=== PATIENT | female | born 1980 | race Caucasian/White ===

== ENCOUNTER 2016-08-13 12:27 | Emergency (ER) ==
[2016-08-13 12:36] VITALS: BP 125/85; TEMP 98.4; BMI 18.8
--- NOTE | 2016-08-13 12:50 | ED.PDOC ---
General ED Provider: Dr. ARIK ARMANDO Chief Complaint: Seizure Stated Complaint: patient woke up from sleep, hurting all over, feels like she had seizure in sleep, that how she felt before when she had one. did not loose bowel or bladder control. Time Seen by Physician: 12:48 Mode of Arrival: Walk-In Information Source: Patient Primary Care Provider: GRACIA JERRY Nursing and Triage Documentation Reviewed and Agree: Yes Neurological Complaint Exam - Seizure Complaint/Exam Symptoms Are: Resolved Timing: Intermittent Episodes Lasting: Seconds Failed to Regain Consciousness: No Severity: Self-limited Location: All extremities Character: Tonic-clonic Aggravating: Reports: None Alleviating: Reports: None Associated Signs and Symptoms: Reports: Anxiety. Denies: Emotional distress, Impaired speech, Bladder incontinence, Bowel incontinence, Trauma, Illness, Vomiting, Lethargy, Apnea Related History: Reports: Similar episode (08-02-) SAH Risk Factors: Reports: None Meningitis Risk Factors: Reports: None SDH Risk Factors: Reports: None Related Surgical History: Reports: None Active Seizure: Tonic-clonic Carotid Bruit Present: No Cephalohematoma Present: No Tongue Bitten: No Neck Pain Present: No Nystagmus Present: No Gag Reflex Present: Yes Speech: Present: Normal Findings Aphasia: Present: None Meningeal Signs Positive: No Focal Weakness: Present: None Focal Sensory Loss: Reports: None Gait: Normal [id number]: Normal Findings Romberg Test Positive: No Babinski Sign: Negative Right, Negative Left Heel to Toe Normal: Yes Differential Diagnoses: Seizure Review of Systems - Review Of Systems Constitutional: Reports: Weakness Eyes: Reports: No symptoms Ears, Nose, Mouth, Throat: Reports: No symptoms Respiratory: Reports: No symptoms Cardiac: Reports: No symptoms GI: Reports: No symptoms : Reports: No symptoms Musculoskeletal: Reports: No symptoms Skin: Reports: No symptoms Neurological: Reports: Headache, Tonic-Clonic seizures Endocrine: Reports: No symptoms Hematologic/Lymphatic: Reports: No symptoms All Other Systems: Reviewed and Negative Past Medical History - Past Medical History Previously Healthy: Yes Endocrine: Reports: None Cardiovascular: Reports: None Respiratory: Reports: None Hematological: Reports: None Gastrointestinal: Reports: None Genitourinary: Reports: None Neuro/Psych: Reports: Seizure Musculoskeletal: Reports: None Cancer: Reports: None Last Menstrual Period: partial hysterectomy - Surgical History General Surgical History: Reports: Hysterectomy - Family History Family History: Reports: None - Social History Smoking Status: Former smoker Hx Substance Use: No Alcohol Screening: None - Immunizations Tetanus Shot up to Date: Yes Physical Exam - Physical Exam Appearance: Well-appearing, No pain distress, Well-nourished Eyes: AMOS, EOMI, Conjunctiva clear ENT: Ears normal (no tongue bite), Nose normal, Oropharynx normal Respiratory: Airway patent, Breath sounds clear, Breath sounds equal, Respirations nonlabored Cardiovascular: RRR, Pulses normal, No rub, No murmur GI/: Soft, Nontender, No masses, Bowel sounds normal, No Organomegaly Musculoskeletal: Normal strength, ROM intact, No edema, No calf tenderness Skin: Warm, Dry, Normal color Neurological: Sensation intact, Motor intact, Reflexes intact, Cranial nerves intact, Alert, Oriented Psychiatric: Affect appropriate, Mood appropriate Interpretation - Radiology Interpretation Radiology Interpretation By: Radiologist Radiology Results: Negative Exam Interpreted: CT Scan Critical Care Note - Critical Care Note Total Time (mins): 0 Course - Course Hematology/Chemistry: 08/13/16 12:55 08/13/16 12:55 Orders, Labs, Meds: Lab Review 08/13/16 12:55 WBC 8.59 RBC 4.72 Hgb 13.5 Hct 39.5 MCV 83.7 MCH 28.6 MCHC 34.2 RDW Coeff of Deepa 12.4 Plt Count 323 Immature Gran % (Auto) 0.5 Neut % (Auto) 58.7 Lymph % (Auto) 31.1 Clinch % (Auto) 7.5 Eos % (Auto) 1.3 Baso % (Auto) 0.9 Immature Gran # (Auto) 0.0 Neut # 5.1 Lymph # 2.7 Clinch # 0.6 Eos # 0.1 Baso # 0.1 Sodium 141 Potassium 3.7 Chloride 109 H Carbon Dioxide 22 Anion Gap 13.7 BUN 9 Creatinine 0.75 Estimated GFR (MDRD) 87.00 BUN/Creatinine Ratio 12.00 Glucose 92 Calcium 9.0 Total Bilirubin 1.44 H AST 16 ALT 12 Alkaline Phosphatase 58 Total Protein 7.0 Albumin 4.0 Globulin 3.0 Albumin/Globulin Ratio 1.33 Orders Category Date Time Status CBC W/ AUTO DIFF Stat LAB 08/13/16 12:55 Completed COMPREHENSIVE METABOLIC PANEL Stat LAB 08/13/16 12:[address] HEAD W/O CONTRAST Stat RADS 03/26/17 12:47 Completed Vital Signs: Temp Pulse Resp BP Pulse Ox 08/13/16 12:28 98.4 F 95 H 16 125/85 99 Departure - Departure Time of Disposition: 13:30 Disposition: HOME SELF-CARE Discharge Problem: Seizure Instructions: Recurrent Seizures in Adults (ED) Condition: Stable Pt referred to PMD for follow-up: Yes Additional Instructions: keep f/u with PMD Allergies/Adverse Reactions: Allergies No Known Allergies Allergy (Verified 08/13/16 12:37) Home Medications: Ambulatory Orders Lorazepam [Ativan] 1 mg PO TID 08/13/16 Disposition Discussed With: Patient
[2016-08-13 13:05] LABS: BASOPHILS # (AUTO) 0.1 K/uL (0-0.2); BASOPHILS % (AUTO) 0.9 % (0.0-3.0); EOSINOPHILS # (AUTO) 0.1 K/ul (0.0-0.7); EOSINOPHILS % (AUTO) 1.3 % (0.0-7.0); HEMATOCRIT 39.5 % (37.0-47.0); HEMOGLOBIN 13.5 g/dl (12.0-16.0); IMMATURE GRANULOCYTE % (AUTO) 0.5 % (0.0-5.0); LYMPHOCYTES # (AUTO) 2.7 K/uL (0.60-3.4); LYMPHOCYTES % (AUTO) 31.1 (10.0-50.0); MEAN CORPUSCULAR HEMOGLOBIN 28.6 pg (27.0-31.0); MEAN CORPUSCULAR HGB CONC 34.2 (31.8-35.4); MEAN CORPUSCULAR VOLUME 83.7 fl (81.0-99.0); MONOCYTES # (AUTO) 0.6 K/uL (0.4-2.0); MONOCYTES % (AUTO) 7.5 (0-10); NEUTROPHILS # (AUTO) 5.1 K/ul (2.0-6.9); NEUTROPHILS % (AUTO) 58.7; PLATELET COUNT 323 10^3/uL (140-440); RED BLOOD COUNT 4.72 10^6/ul (4.20-5.40); WHITE BLOOD COUNT 8.59 K/ul (4.6-10.2)
--- NOTE | 2016-08-13 13:15 | CT ---
Examination: Noncontrast CT examination of the brain. Comparison: 05/14/2007. Reason for study: Seizure. FINDINGS: No acute intracranial hemorrhage, mass effect, ventricular dilatation, or territorial inf arction. The quadrigeminal and ambient cisterns are patent. There is no extraaxial fluid collectio n. The calvarium is intact. The imaged paranasal sinuses and mastoid air cells are unopacified. Th e patient is edentulous. Impression: No acute intracranial findings.
[2016-08-13 13:28] LABS: ALBUMIN/GLOBULIN RATIO 1.33; ANION GAP 13.7; BILIRUBIN,TOTAL 1.44 mg/dL (0.00-1.20); CREATININE 0.75 mg/dL (0.60-1.30); POTASSIUM 3.7 mmol/L (3.5-5.10)
== END 2016-08-13 13:34 | disposition home or self-care (01) ==
LOC: ED 12:27
DX: R56.9 Unspecified convulsions (principal)
CPT/HCPCS: 36415; 80053; 85025; 99282

== ENCOUNTER 2023-08-24 14:52 | Observation (INO) ==
[~2023-08-24 14:52] MED LIST: HYDROCHLOROTHIAZIDE PO SCH
--- NOTE | 2023-08-24 15:52 | ED.PDOC ---
General ED Provider: Dr. BRADFORD BRASHER Chief Complaint: Palpitations Stated Complaint: Patient is a 42-year-old female who comes to the emergency department with a 2-day history of palpitations. She states has been having blood pressure issues and her PCP increased her blood pressure medications. She reports having chest pain is substernal area for the past 2 days and then palpitations for the last 1 and for hours. She states nothing makes it better or worse. She describes the pain as pressure and does not radiate. She states her palpitations have been constant. She also states that she has a history of mitral valve prolapse. Time Seen by Provider: 08/24/23 15:50 Mode of Arrival: Walk-In Information Source: Patient Primary Care Provider: GRACIA JERRY Nursing and Triage Documentation Reviewed and Agree: Yes What is Opioid Naive?: *Opioid Naive implies the patient is not already taking opioids or not chronically receiving opioids on a daily basis. *PRN dosing is not "usually" associated with tolerance. *Patients are at higher risk of over-sedation and aspiration. What is Opioid Tolerant?: *Opioid Tolerance implies less than the expected response to an opioid. *Acquired tolerance is defined by the patient taking 60mg of oral morphine daily (or equianalgesic dose of another opioid) for 1 week or more. *Often associated with chronic pain. *May take more than usual dose to achieve desired pain control. Cardiovascular Complaint Exam Palpitations Complaint/Exam Onset/Duration: 2 days Symptoms Are: Still present Timing: Intermittent Current Severity: Mild Character: Reports Skipped beats Aggravating: Reports None Alleviating: Reports None Associated Signs and Symptoms: Reports Lightheadedness, Dizziness and Chest pain (intermitent ); Denies Syncope Related Surgical History: Reports None Cardiac Risk Factors: Reports None Pulmonary Embolism Risk Factors: Reports None Differential Diagnoses: Mitral Valve Prolapse, Hypokalemia, Paroxysmal SVT and VT Quality Indicator For Non-Traumatic Chest Pain/Syncope: EKG Performed Review of Systems Review Of Systems Constitutional: Reports No symptoms Cardiac: Reports Palpitations GI: Reports No symptoms : Reports No symptoms Musculoskeletal: Reports No symptoms Skin: Reports No symptoms Neurological: Reports Anxiety All Other Systems: Reviewed and Negative [facility] Medical History (Updated 08/24/23 @ 20:26 by BRADFORD BRASHER MD) Mitral valve prolapse I34.1 - Nonrheumatic mitral (valve) prolapse (ICD-10) delivery delivered two childbirths O82 - Encounter for delivery without indication (ICD-10) Family History (Updated 08/24/23 @ 19:36 by TEODORA NUNEZ RN) FATHER Diabetes Social History (Updated 08/24/23 @ 19:51 by TEODORA NUNEZ RN) Smoking and tobacco status: Never smoker Alcohol intake: never Claudia/uatsdin: NONE Surgical History (Updated 08/24/23 @ 20:00 by TEODORA NUNEZ RN) History of hysterectomy Z90.710 - Acquired absence of both cervix and uterus (ICD-10) History of cholecystectomy Z90.49 - Acquired absence of other specified parts of digestive tract (ICD- 10) Female Reproductive History Menstrual Hx Hysterectomy: Yes Hx Tubal Ligation: No Physical Exam Physical Exam Appearance: Reports Well-appearing Ill-appearing: None Pain Distress: None Eyes: Reports AMOS, EOMI and Conjunctiva clear Respiratory: Reports Airway patent, Breath sounds clear and Breath sounds equal Cardiovascular: Reports RRR, Pulses normal and No rub Musculoskeletal: Reports Normal strength and ROM intact Skin: Reports Warm Psychiatric: Reports Anxious Interpretation EKG Interpretation Time of EKG #1: 15:39 Rate: Normal Rhythm: Sinus Ectopy: None Mission: NL ST Segment: Normal Interpretation: No ischemic changes normal EKG. Critical Care Note Critical Care Note Total Critical Care Time (mins): 40 Comments: Monitoring patient and managing severe hypokalemia with IV fluids and p.o. medications and placing orders for IV potassium. Course Course 08/24/23 16:08 08/24/23 16:08 Orders, Labs, Meds: Lab Review 08/24/23 08/24/23 16:02 16:08 WBC 10.49 H RBC 3.95 L Hgb 11.6 L Hct 34.0 L MCV 86.1 MCH 29.4 MCHC 34.1 RDW Coeff of Deepa 12.5 Plt Count 312 Immature Gran % (Auto) 0.4 Neut % (Auto) 62.3 Lymph % (Auto) 29.7 Benzie % (Auto) 6.0 Eos % (Auto) 1.0 Baso % (Auto) 0.6 Neut # (Auto) 6.5 Lymph # (Auto) 3.1 Benzie # (Auto) 0.6 Eos # (Auto) 0.1 Baso # (Auto) 0.1 Immature Gran # (Auto) 0.0 Sodium 136.8 Potassium 2.88 L Chloride 103.5 Carbon Dioxide 27.9 Anion Gap 8.28 BUN 16.4 Creatinine 0.91 Estimated GFR (MDRD) 67.00 BUN/Creatinine Ratio 18.02 Glucose 98.3 Lactic Acid 0.89 Calcium 9.21 Magnesium 2.01 Total Bilirubin 0.90 AST 30.8 ALT 27.1 Alkaline Phosphatase 56.5 Troponin I < 0.012 NT-Pro-B Natriuret Pep < 20 Total Protein 6.96 Albumin 4.17 Globulin 2.79 Albumin/Globulin Ratio 1.49 TSH 1.460 D-Dimer 202.72 Influ A Molecular Assay Negative by naat Influ B Molecular Assay Negative by naat SARS CoV-2 RNA Rapid CASSIE Negative Orders Category Date Time Status ADMIT OBSERVATION [PLACE PATIENT OBSERVATION] .TO ADMISSION 08/24/23 17:54 Active MEDSURG (MONITORED BED) EKG-(ED ONLY) Stat CARDIO 08/24/23 15:36 Completed Monitor Telemetry [TELEMETRY MONITORING] TELE CARE 08/24/23 16:41 Completed TELEMETRY MONITORING TELE CARE 08/24/23 17:55 Active ED APPLY O2 .ONCE EMERGENCY 08/24/23 15:52 Active ED DOOR CUTTER APPLIED .ONCE EMERGENCY 08/24/23 15:52 Active CBC W/ AUTO DIFF Stat LAB 08/24/23 16:08 Completed COMPREHENSIVE METABOLIC PANEL Stat LAB 08/24/23 16:08 Completed D-DIMER Stat LAB 08/24/23 16:08 Completed FLU A/B MOLECULAR Stat LAB 08/24/23 16:02 Completed LACTIC ACID Stat LAB 08/24/23 16:08 Completed MAGNESIUM Stat LAB 08/24/23 16:08 Completed NT-PROBNP(ED) Stat LAB 08/24/23 16:08 Completed SARS COV-2 RNA RAPID CASSIE Stat LAB 08/24/23 16:02 Completed TROPONIN I Stat LAB 08/24/23 16:08 Completed TSH [THYROID STIMULATING HORMONE] Stat LAB 08/24/23 16:08 Completed Potassium Chloride [K-Dur] Meds 08/24/23 17:30 Discontinued 40 meq PO ONCE STA Potassium Chloride [Potassium Chloride 20 Meq/100 ml Meds 08/24/23 17:30 Discontinued Premix] 20 meq in 100 ml IV ONCE Sodium Chloride 0.9% [Sodium Chloride] 1,000 ml Meds 08/24/23 17:30 Discontinued IV BOLUS CHEST, 2 VIEWS PA & LAT Stat RADS 08/24/23 15:52 Completed Medications Generic Name Dose Route Start Last Admin Trade Name Mattq PRN Reason Stop Dose Admin Alprazolam 0.5 mg 08/25/23 09:00 Alprazolam 0.5 Mg Tablet PO DAILY ALINA Atorvastatin Calcium 20 mg 08/24/23 20:10 Atorvastatin Calcium 20 Mg Tablet PO BEDTIME ALINA Lisinopril/HCTZ 1 tab 08/25/23 09:00 Lisinopril/Hydrochlorothiazide 20/12.5 Tablet PO DAILY ALINA Lisinopril 40 mg 08/24/23 20:10 Lisinopril 40 Mg Tablet PO DAILY ALINA Meloxicam 15 mg 08/24/23 20:05 Meloxicam 7.5 Mg Tablet PO DAILY ALINA Zolpidem Tartrate 15 mg 08/24/23 20:30 Zolpidem Tartrate 5 Mg Tablet PO DAILY ALINA Discontinued Medications Generic Name Dose Route Start Last Admin Trade Name Mattq PRN Reason Stop Dose Admin Potassium Chloride 20 meq in 100 mls @ 50 mls/hr 08/24/23 17:30 08/24/23 18:35 Potassium Chloride 20 Meq/100 Ml Premix IV 08/24/23 19:29 50 mls/hr ONCE ONE Administration Sodium Chloride 1,000 mls @ 1,000 mls/hr 08/24/23 17:30 08/24/23 19:46 Sodium Chloride IV 08/24/23 18:29 Infused BOLUS STA Infusion Potassium Chloride 40 meq 08/24/23 17:30 08/24/23 17:55 Potassium Chloride 20 Meq Tab PO 08/24/23 17:31 40 meq ONCE STA Administration Vital Signs: Temp Pulse Resp BP Pulse Ox 08/24/23 15:14 98.2 F 82 16 149/91 H 99 NIKITA Risk Score NIKITA Risk Score: Risk Score Odds of by 30D 0 0.1 (0.1-0.2) 1 0.3 (0.2-0.3) 2 0.4 (0.3-0.5) 3 0.7 (0.6-0.9) 4 1.2 (1.0-1.5) 5 2.2 (1.9-2.6) 6 3.0 (2.5-3.6) 7 4.8 (3.8-6.1) Physician Progress Note: [] Discharge Plan Discharge Patient Disposition: PLACED OBSERVATION Discharge Problem: Palpitations, Hypokalemia Did you review [place] [employer] for ALL controlled substances?: Not Applicable ED Provider: BRADFORD BRASHER Condition: Fair
--- NOTE | 2023-08-24 16:26 | DI ---
EXAM: CHEST TWO-VIEW HISTORY: Chest pain COMPARISON: None FINDINGS: Cardiac silhouette and mediastinum are normal. There is no pulmonary infiltrate.There is no pleural effusion. Skeletal structures unremarkable IMPRESSION: Negative chest. No active cardiopulmonary disease
[2023-08-24 16:29] LABS: BASOPHILS # (AUTO) 0.1 K/uL (0-0.2); BASOPHILS % (AUTO) 0.6 % (0.0-3.0); EOSINOPHILS # (AUTO) 0.1 K/ul (0.0-0.7); HEMOGLOBIN 11.6 g/dl (12.0-16.0); IMMATURE GRANULOCYTE % (AUTO) 0.4 % (0.0-5.0); LYMPHOCYTES # (AUTO) 3.1 K/uL (0.60-3.4); LYMPHOCYTES % (AUTO) 29.7 (10.0-50.0); MEAN CORPUSCULAR HEMOGLOBIN 29.4 pg (27.0-31.0); MEAN CORPUSCULAR HGB CONC 34.1 (31.8-35.4); MEAN CORPUSCULAR VOLUME 86.1 fl (81.0-99.0); MONOCYTES # (AUTO) 0.6 K/uL (0.4-2.0); NEUTROPHILS # (AUTO) 6.5 K/ul (2.0-6.9); NEUTROPHILS % (AUTO) 62.3 % (42.2-75.2); PLATELET COUNT 312 10^3/uL (140-440); RDW COEFFICIENT OF VARIATION 12.5 % (11.6-14.8); RED BLOOD COUNT 3.95 10^6/ul (4.20-5.40); WHITE BLOOD COUNT 10.49 K/ul (4.6-10.2)
[2023-08-24 16:45] LABS: ALANINE AMINOTRANSFERASE 27.1 U/L (0-35); ALBUMIN 4.17 g/dL (3.5-5.0); ALKALINE PHOSPHATASE 56.5 U/L (38-126); ASPARTATE AMINO TRANSFERASE 30.8 U/L (14-36); BLOOD UREA NITROGEN 16.4 mg/dL (7-17); CALCIUM 9.21 mg/dL (8.4-10.2); CARBON DIOXIDE 27.9 mmol/L (22-30.0); CHLORIDE 103.5 mmol/L (98-107); CREATININE 0.91 mg/dL (0.60-1.30); GLUCOSE 98.3 mg/dL (74-106); POTASSIUM 2.88 mmol/L (3.5-5.1); SODIUM 136.8 mmol/L (134.5-145); TOTAL PROTEIN 6.96 g/dL (6.3-8.2)
[2023-08-24 16:51] LABS: SARS COV-2 RNA RAPID NAAT NEGATIVE (NEGATIVE)
[2023-08-24 16:57] LABS: TROPONIN I < 0.012 ng/ml (0.0000-0.120)
[2023-08-24 17:04] LABS: MOLECULAR FLU A NEGATIVE BY NAAT (NEGATIVE); MOLECULAR FLU B NEGATIVE BY NAAT (NEGATIVE)
[2023-08-24 17:08] LABS: MAGNESIUM 2.01 mg/dL (1.6-2.3)
[2023-08-24 17:40] LABS: THYROID STIMULATING HORMONE 1.46 uIU/L (0.465-4.68)
[2023-08-24] MEDS: K-DUR PO STA (17:55)
[2023-08-24 18:31] VITALS: BMI 28.4
[2023-08-24] MEDS: POTASSIUM CHLORIDE 20 MEQ/100 ML PREMIX 20 MEQ/100 ML BAG IV ONE (18:35)
[2023-08-24] MEDS: SODIUM CHLORIDE 1,000 ML IV STA (18:35)
[2023-08-24] MEDS ORDERED: AMBIEN PO SCH ×3 (20:30→21:00)
[2023-08-24] MEDS: LIPITOR PO SCH (20:41)
[2023-08-24] MEDS: ZESTRIL PO SCH (20:41)
[2023-08-24] MEDS: MOBIC PO SCH (20:41)
[2023-08-24] MEDS: AMBIEN PO SCH (20:50)
[2023-08-24] MEDS ORDERED: ZOFRAN 4 MG/2 ML IVP PRN (21:11)
[2023-08-24] MEDS ORDERED: TYLENOL PO PRN (21:11)
[2023-08-25 05:49] LABS: BASOPHILS # (AUTO) 0.1 K/uL (0-0.2); BASOPHILS % (AUTO) 0.9 % (0.0-3.0); EOSINOPHILS # (AUTO) 0.1 K/ul (0.0-0.7); EOSINOPHILS % (AUTO) 1.3 % (0.0-7.0); HEMATOCRIT 34.7 % (37.0-47.0); HEMOGLOBIN 11.6 g/dl (12.0-16.0); IMMATURE GRANULOCYTE % (AUTO) 0.4 % (0.0-5.0); LYMPHOCYTES # (AUTO) 2.8 K/uL (0.60-3.4); LYMPHOCYTES % (AUTO) 31.1 (10.0-50.0); MEAN CORPUSCULAR HGB CONC 33.4 (31.8-35.4); MEAN CORPUSCULAR VOLUME 86.8 fl (81.0-99.0); MONOCYTES # (AUTO) 0.5 K/uL (0.4-2.0); MONOCYTES % (AUTO) 5.7 (0-10); NEUTROPHILS # (AUTO) 5.4 K/ul (2.0-6.9); NEUTROPHILS % (AUTO) 60.6 % (42.2-75.2); PLATELET COUNT 286 10^3/uL (140-440); RDW COEFFICIENT OF VARIATION 12.7 % (11.6-14.8); WHITE BLOOD COUNT 8.93 K/ul (4.6-10.2)
[2023-08-25 06:05] LABS: ALANINE AMINOTRANSFERASE 24.3 U/L (0-35); ALBUMIN 3.7 g/dL (3.5-5.0); ALKALINE PHOSPHATASE 53.9 U/L (38-126); ASPARTATE AMINO TRANSFERASE 27.7 U/L (14-36); BILIRUBIN,TOTAL 0.99 mg/dL (0.2-1.3); CALCIUM 8.24 mg/dL (8.4-10.2); CARBON DIOXIDE 24.3 mmol/L (22-30.0); CHLORIDE 106.3 mmol/L (98-107); CREATININE 0.49 mg/dL (0.60-1.30); GLUCOSE 99.9 mg/dL (74-106); POTASSIUM 3.28 mmol/L (3.5-5.1); SODIUM 135.7 mmol/L (134.5-145); TOTAL PROTEIN 6.29 g/dL (6.3-8.2)
[2023-08-25] MEDS: MOBIC PO SCH (07:44)
[2023-08-25] MEDS ORDERED: HYDROCHLOROTHIAZIDE PO SCH (09:00)
[2023-08-25] MEDS ORDERED: ZESTORETIC 20-12.5 MG TAB PO SCH (09:00)
[2023-08-25] MEDS: K-DUR PO ONE (09:14)
[2023-08-25] MEDS: XANAX PO SCH (09:21)
[2023-08-25] MEDS: EFFEXOR XR PO SCH (09:34)
[2023-08-25 09:54] VITALS: BP 143/84; PULSE 76; RESP 19; TEMP 98
--- NOTE | 2023-08-25 10:59 | PCM.SS ---
Provider Provider: CAM ALONSO PA-C, [facility] Ad[facility] Date Admission Date: 08/24/23 Discharge Date Discharge Date: 08/25/23 Primary Care Physician Primary Care Physician: GRACIA JERRY Chief Complaint Reason For Visit: HYPOKALEMIA, PALPITATIONS History of Present Illness History of Present Illness: Admitted 08/24/23 18:04, this 42 year old /WHITE/F with pmhx of MVP, hypertension, insomnia who presented to ER with chest discomfort and palpitations for two days. The palpitations were specifically worsened for about 1.5 prior to ER presentation. She feels like her heart is "flip flopping." In ER patient had a normal EKG, undetectable trop, d dimer, mag and tsh normal. No hypoxia. Pt was noted to have K+ of 2.8. She was given potassium. She was admitted to med surg. Patient had telemetry overnight. No significant abnormalities, very rare pvc noted. Pt states her palpitations are significantly improved but she still has had the sensation a couple times this morning. K+ improved to 3.2. More replacement given. Discussed hctz could contribute to low potassium. Advised to hold until pcp f/u, will supplement potassium for 3 more days, and f/u with pcp for repeat blood work this coming week. Will send home on a holter monitor for 14 days to r/o underlying arrhythmia not caught on tele overnight. Patient appears stable, nontoxic, vitals stable, labs unremarkable. Pt agreeable with discharge to home. Consider outpatient echo, unable to perform at this time in house. [facility] Medical History Mitral valve prolapse I34.1 - Nonrheumatic mitral (valve) prolapse (ICD-10) delivery delivered two childbirths O82 - Encounter for delivery without indication (ICD-10) Surgical History History of hysterectomy Z90.710 - Acquired absence of both cervix and uterus (ICD-10) History of cholecystectomy Z90.49 - Acquired absence of other specified parts of digestive tract (ICD- 10) Family History FATHER Diabetes Social History Smoking and tobacco status: Never smoker Alcohol intake: never Claudia/nondenominational: NONE Medications Mecications: Medications at Discharge (Home Meds & RX) atorvastatin 20 mg tablet (Lipitor) 20 mg PO BEDTIME 11/14/22 alprazolam 0.5 mg tablet 0.5 mg PO DAILY 08/24/23 hydrochlorothiazide 25 mg tablet 25 mg PO QAM 08/24/23 linaclotide 72 mcg capsule (Linzess) 72 mcg PO QAM 08/24/23 lisinopril 40 mg tablet 40 mg PO DAILY 08/24/23 meloxicam 15 mg tablet 15 mg PO DAILY 08/24/23 venlafaxine 150 mg capsule,extended release 24 hr 150 mg PO DAILY 08/24/23 zolpidem 10 mg tablet 10 mg PO BEDTIME 08/24/23 Allergies Allergies Allergy/AdvReac Type Severity Reaction Status Date / Time morphine AdvReac Unknown Verified 08/24/23 15:33 oxycodone [From Percocet] AdvReac Vomiting Verified 08/24/23 15:33 Review of Systems Constitutional: Denies Fever or Fatigue Head: Reports Normocephalic and Atraumatic Cardiovascular: Reports Chest pain, High Blood Pressure and Palpitations; Denies Edema Respiratory: Denies Cough or Shortness of air Gastrointestinal: Denies Nausea, Vomiting, Diarrhea, Abdominal pain or Melena Genitourinary: Denies Dysuria or Frequency Neurological: Denies Headache, Dizziness or Syncope Physical Examination Appearance: Positive Well-appearing, Well-nourished, No Apparent Distress and Alert and Oriented x3 Head: Positive Normocephalic and Atraumatic Neck: Positive Supple and Trachea Midline Heart: Positive RRR Respiratory: Positive Breath Sounds Clear, Bilaterally and Respirations Nonlabored; Negative Crackles, Rhonchi or Wheezes GI/: Positive Soft, Nontender, Bowel sounds normal and No Distention Extremities: Positive Edema Neurological: Positive Cranial nerves intact, Alert and Oriented Psychiatric: Positive Normal Judgement, Normal Insight, Affect Appropriate and Mood Appropriate Vital Signs (Last 4 Hours) Vital Signs Last 4 Hours: Vital Signs: Last 4 Hours 08/25/23 07:00 08/25/23 07:00 08/25/23 07:56 Temperature Temperature Source Pulse Rate Pulse Rate [Apical] 81 Respiratory Rate 16 Blood Pressure Blood Pressure Mean Blood Pressure Location Blood Pressure Position O2 Sat by Pulse Oximetry Oxygen Delivery Method Room Air Room Air Telemetry Type Remote Telemetry Telemetry Monitoring Continues Telemetry Heart Rate 72 EKG NV Interval 0.22 H EKG QRS Interval 0.08 Telemetry Strip Reading SR WITH 1ST DEGREE 08/25/23 08:00 08/25/23 09:00 08/25/23 09:53 Temperature 98 F Temperature Source Temporal Artery Scan Pulse Rate 76 Pulse Rate [Apical] Respiratory Rate 19 Blood Pressure 143/84 H Blood Pressure Mean 103 Blood Pressure Location Right Arm Blood Pressure Position Supine O2 Sat by Pulse Oximetry 100 Oxygen Delivery Method Room Air Room Air Room Air Telemetry Type Telemetry Monitoring Telemetry Heart Rate EKG NV Interval EKG QRS Interval Telemetry Strip Reading Labs This Visit Labs This Visit: Labs This Visit 08/24/23 08/24/23 08/25/23 16:02 16:08 05:34 WBC 10.49 H 8.93 RBC 3.95 L 4.00 L Hgb 11.6 L 11.6 L Hct 34.0 L 34.7 L MCV 86.1 86.8 MCH 29.4 29.0 MCHC 34.1 33.4 RDW Coeff of Deepa 12.5 12.7 Plt Count 312 286 Immature Gran % (Auto) 0.4 0.4 Neut % (Auto) 62.3 60.6 Lymph % (Auto) 29.7 31.1 [place] % (Auto) 6.0 5.7 Eos % (Auto) 1.0 1.3 Baso % (Auto) 0.6 0.9 Neut # (Auto) 6.5 5.4 Lymph # (Auto) 3.1 2.8 [place] # (Auto) 0.6 0.5 Eos # (Auto) 0.1 0.1 Baso # (Auto) 0.1 0.1 Immature Gran # (Auto) 0.0 0.0 Sodium 136.8 135.7 Potassium 2.88 L 3.28 L Chloride 103.5 106.3 Carbon Dioxide 27.9 24.3 Anion Gap 8.28 8.38 BUN 16.4 12.0 Creatinine 0.91 0.49 L Estimated GFR (MDRD) 67.00 137.00 BUN/Creatinine Ratio 18.02 24.48 Glucose 98.3 99.9 Lactic Acid 0.89 Calcium 9.21 8.24 L Magnesium 2.01 Total Bilirubin 0.90 0.99 AST 30.8 27.7 ALT 27.1 24.3 Alkaline Phosphatase 56.5 53.9 Troponin I < 0.012 NT-Pro-B Natriuret Pep < 20 Total Protein 6.96 6.29 L Albumin 4.17 3.70 Globulin 2.79 2.59 Albumin/Globulin Ratio 1.49 1.42 TSH 1.460 D-Dimer 202.72 Influ A Molecular Assay Negative by naat Influ B Molecular Assay Negative by naat SARS CoV-2 RNA Rapid CASSIE Negative Imaging Imaging: EXAM: CHEST TWO-VIEW HISTORY: Chest pain COMPARISON: None FINDINGS: Cardiac silhouette and mediastinum are normal. There is no pulmonary infiltrate.There is no pleural effusion. Skeletal structures unremarkable IMPRESSION: Negative chest. No active cardiopulmonary disease Review Review Statement: I have independently reviewed and interpreted the labs/EKGs/imaging that were ordered by the ER provider. I have reviewed all outside records that are available currently in our EMR including imaging/notes/labs from previous visits. Plan Reccomendations/Plan: 1. Palpitations - d dimer, mag, tsh normal. K+ low, could be contributing, will replace. Tele. Consider outpatient echo, unable to perform this week in house. 2. Hypokalemia, severe - Improved today to 3.2, give another 40 meq. 3. Hypertension - Hold hctz 4. Hyperlipidemia - Cont home meds 5. Anxiety - Cont home meds Patient had telemetry overnight. No significant abnormalities, very rare pvc noted. Pt states her palpitations are significantly improved but she still has had the sensation a couple times this morning. K+ improved to 3.2. More repl acement given. Discussed hctz could contribute to low potassium. Advised to hold until pcp f/u, will supplement potassium for 3 more days, and f/u with pcp for repeat blood work this coming week. Will send home on a holter monitor for 14 days to r/o underlying arrhythmia not caught on tele overnight. Patient appears stable, nontoxic, vitals stable, labs unremarkable. Pt agreeable with discharge to home. Consider outpatient echo, unable to perform at this time in house. 1. Palpitations, improved 2. Hypokalemia, improved 3. Hypertension 4. Hyperlipidemia 5. Anxiety 6. Hx of MVP Additional Planning: Case discussed with ED Physician, Dr. Farrell. DVT Prophylaxis: Ambulation Advanced Care Plannin minutes spent discussing advance care planning. Admit to: Obs Discussed Plan of Care with Dr. Claudy Webster. Review With Patient Reviewed with Patient and Family: Patient and family have been counseled on condition and care plan and have no immediate questions. I have personally discussed and reviewed the patient's visit/current labs/imaging/decision making with Dr. Claudy Webster, my supervising attending. Total number of minutes spent with patient [85] min. More than 50% of the time spent with this patient was devoted to counseling and coordination of care. Time of Admission:08/24/23 18:04 Time of Discharge: 08/25/23 1045 Discharge Plan Discharge Discharge Orders: Discharge Patient (ONCE); Ordered 08/25/23 Ordered By: CAM ALONSO Activity Restrictions/Additional Instructions: DISCHARGE TO HOME DIAGNOSIS: HYPOKALEMIA, PALPITATIONS HOLTER MONITOR X2 WEEKS PHARMACY: [facility] HOLD HCTZ UNTIL F/U WITH PCP (IT CAN CONTRIBUTE TO LOW POTASSIUM) Patient Disposition: HOME SELF-CARE Prescriptions: New potassium chloride 20 mEq tablet extended release 20 meq PO DAILY Qty: 3 0RF Rx Instructions: STARTING 08/26/23 Continued atorvastatin [Lipitor] 20 mg tablet 20 mg PO BEDTIME meloxicam 15 mg tablet 15 mg PO DAILY venlafaxine 150 mg capsule,extended release 24hr 150 mg PO DAILY Hold Instructions: MD Smith alprazolam 0.5 mg tablet 0.5 mg PO DAILY zolpidem 10 mg tablet 10 mg PO BEDTIME Linzess 72 mcg capsule 72 mcg PO QAM lisinopril 40 mg tablet 40 mg PO DAILY Discontinued hydrochlorothiazide 25 mg tablet 25 mg PO QAM Did you review [place] [employer] for ALL controlled substances?: Not Applicable Discussed opioids are addictive and Narcan is available by prescription or from pharmacy.: No Condition: Stable
[2023-08-25] MEDS ORDERED: ZESTRIL PO SCH (21:00)
== END 2023-08-25 11:15 | disposition home or self-care (01) ==
LOC: ED 14:52 → MEDSURG B 14:52
PROVIDERS: ADMIT Hospitalist; ATTEND Physician Assistant
DX: Z51.81 Encounter for therapeutic drug level monitoring; F41.9 Anxiety disorder, unspecified; R07.9 Chest pain, unspecified; R00.2 Palpitations; I34.1 Nonrheumatic mitral (valve) prolapse; E78.5 Hyperlipidemia, unspecified; Z79.899 Other long term (current) drug therapy; I10 Essential (primary) hypertension; E87.6 Hypokalemia